=== PATIENT | female | born 1985 | race Caucasian/White ===

== ENCOUNTER 2021-06-17 14:39 | Emergency (ER) | payer OTHER ==
[~2021-06-17 14:39] MED LIST: GRISEOFULVIN500 MG PO; KEFLEX CAP 500500 MG PO
[2021-06-17] MEDS ORDERED: NAPROSYN500 MG PO (15:58)
[2021-06-17] MEDS ORDERED: PENVEE K 500 M500 MG PO (15:58)
[2021-06-17] MEDS ORDERED: Magic Mouth Wash PO (15:58)
== END 2021-06-17 15:40 | disposition home or self-care (01) ==
LOC: ER1 14:39
DX: G89.18 Other acute postprocedural pain (principal); K08.89 Other specified disorders of teeth and supporting structures; F17.210 Nicotine dependence, cigarettes, uncomplicated
CPT/HCPCS: 99283

== ENCOUNTER 2021-07-21 18:00 | Emergency (ER) | payer OTHER ==
[~2021-07-21 18:00] MED LIST changes: +Magic Mouth Wash PO; +NAPROSYN500 MG PO; +PENVEE K 500 M500 MG PO
[2021-07-21] MEDS ORDERED: ERYTHROMYCIN O3.5 GM EYERT (18:20)
[2021-07-21] MEDS ORDERED: CLEOCIN HCL300 MG PO (18:20)
== END 2021-07-21 18:25 | disposition home or self-care (01) ==
LOC: ER1 18:00
DX: K04.7 Periapical abscess without sinus (principal); H00.013 Hordeolum externum right eye, unspecified eyelid; F17.210 Nicotine dependence, cigarettes, uncomplicated
CPT/HCPCS: 99283